=== PATIENT | female | born 1965 | race African-American/Black ===

== ENCOUNTER → 2016-08-26 | Outpatient (CLI) | payer OTHER ==
[2015-05-17 10:00] VITALS: BP 142/74
[~2016-08-26] MED LIST: FERR-26 PO; HYDR12.58 PO; IOHEXOL 300 MG/ML 100ML VIAL. IV ONE; OMEP40CA5 PO; calcium
--- NOTE | 2016-08-26 16:18 | KCIC ---
Indication: Lung nodule Technique: Axial images and coronal and sagittal reformatted images are provided. 95 mL of intravenous Isovue 370 was administered without complication. Comparison is from May 17, 2015. One or more of the following individualized dose reduction techniques were utilized for this examination: 1. Automated exposure control 2. Adjustment of the mA and/or kV according to patient size 3. Use of iterative reconstruction technique Findings: 5 mm left upper lobe nodule on image 49 is stable. Groundglass opacities noted on prior study have improved. No new nodule is identified. There is no pleural effusion. There is no consolidation. There is minimal dependent atelectasis. Central airways are patent. There is no hilar or mediastinal adenopathy. There is minimal atheromatous disease of the thoracic aorta. There is fatty infiltration of the liver. IMPRESSION: 1. Stable pulmonary nodule. Per the most recent Fleischner society recommendations, no further workup is required. 2. Atheromatous disease of the thoracic aorta. 3. Mild fatty infiltration of the liver. Electronically signed by: Doug Black MD (08/26/2016 4:14 PM)
== END | disposition home or self-care (01) ==
LOC: KCIC CT 15:00
PROVIDERS: ATTEND Nurse Practitioner Family
DX: R91.1 Solitary pulmonary nodule (principal); K76.0 Fatty (change of) liver, not elsewhere classified; I70.0 Atherosclerosis of aorta
CPT/HCPCS: 71260; Q9967

== ENCOUNTER → 2016-12-26 | Outpatient (CLI) | payer OTHER ==
[2015-05-17 10:00] VITALS: BP 142/74
[~2016-12-26] MED LIST changes: -IOHEXOL 300 MG/ML 100ML VIAL. IV ONE
--- NOTE | 2016-12-26 13:33 | KCIC ---
Bilateral digital screening mammograms: Reason for examination: Routine screening. Comparison is made to previous studies dated 08/14/2015 and 09/09/2013. Interpretation was made with the benefit of CAD. The skin and nipples show no abnormalities. No abnormal axillary lymph nodes are seen. The breast parenchyma shows scattered fibroglandular density. (Breast density: Category B.) There are no dominant masses, suspicious calcifications or architectural distortions. Impression: No evidence of malignancy. Recommend routine screening. BI-RADS Category 1: Negative. "Our facility is accredited by the [employer] Mammography [employer]." This patient's information has been entered into a reminder system for the patient to be notified with the results of her examination and a target date for the next mammogram. Electronically signed by: Kaitlin Hooper MD (12/26/2016 1:29 PM) [id number]
== END | disposition home or self-care (01) ==
LOC: KCIC MAMMO 10:49
PROVIDERS: ATTEND Nurse Practitioner Family
DX: Z12.31 Encounter for screening mammogram for malignant neoplasm of breast (principal)
CPT/HCPCS: G0202; 77067

== ENCOUNTER → 2018-01-30 | Outpatient (CLI) | payer OTHER ==
[2015-05-17 10:00] VITALS: BP 142/74
[~2018-01-30] MED LIST changes: -FERR-26 PO; +FERR325T14 PO
--- NOTE | 2018-01-30 17:20 | KCIC ---
Bilateral digital screening mammograms: Reason for examination: Routine screening. Comparison is made to previous studies dated 12/26/2016 and 08/14/2015. Interpretation was made with the benefit of CAD. The skin and nipples show no abnormalities. No abnormal axillary lymph nodes are seen. The breast parenchyma shows scattered fibroglandular density. (Breast density: Category B.) There are no dominant masses, suspicious calcifications or architectural distortions. Impression: No evidence of malignancy. Recommend routine screening. BI-RADS Category 1: Negative. "Our facility is accredited by the [employer] Mammography [employer]." This patient's information has been entered into a reminder system for the patient to be notified with the results of her examination and a target date for the next mammogram. Electronically signed by: Kaitlin Hooper MD (01/30/2018 5:16 PM) [id number]
== END | disposition home or self-care (01) ==
LOC: KCIC MAMMO 08:27
PROVIDERS: ATTEND Nurse Practitioner Family
DX: Z12.31 Encounter for screening mammogram for malignant neoplasm of breast (principal)
CPT/HCPCS: 77067

== ENCOUNTER → 2018-11-26 | Outpatient (CLI) | payer OTHER ==
[2015-05-17 10:00] VITALS: BP 142/74
--- NOTE | 2018-11-26 11:12 | KCIC ---
Pelvic ultrasound to include transabdominal and transvaginal imaging 11/26/2018 CLINICAL HISTORY: Abnormal vaginal bleeding. TECHNIQUE: Using the distended urinary bladder as a sonographic window, a real-time ultrasound examination of the pelvis was performed. Additionally in an attempt to better evaluate the uterus and adnexa, a transvaginal ultrasound was performed. Multiple images were obtained. FINDINGS: The uterus is within normal limits in size. It measures 9.0 x 5.8 x 5.0 cm in longitudinal, transverse, and AP dimensions. The endometrial echo complex measures 2.7 mm in thickness which is within normal limits. Within the right posterior aspect of the mid uterine body a rounded hypoechoic mass is seen which measures 1.7 cm in size. This is consistent with a uterine fibroid. No additional abnormality of the uterus is seen. The right ovary is not visualized. The left ovary is normal in size. It measures 2.9 x 2.5 x 1.3 cm in size. A 2 cm oval-shaped anechoic structure is seen within the left ovary consistent with a dominant follicle. No free fluid is seen. IMPRESSION: 1.7 cm uterine fibroid. Electronically signed by: Michael Montes De Oca MD (11/26/2018 11:09 AM) [id number]
== END | disposition home or self-care (01) ==
LOC: KCIC US 09:45
PROVIDERS: ATTEND Nurse Practitioner Family
DX: D25.9 Leiomyoma of uterus, unspecified (principal); N85.8 Other specified noninflammatory disorders of uterus
CPT/HCPCS: 76830; 76856

== ENCOUNTER → 2021-05-03 | Outpatient (CLI) | payer OTHER ==
[2015-05-17 10:00] VITALS: BP 142/74
[~2021-05-03] MED LIST changes: -OMEP40CA5 PO; +OMEP40CA7 PO
--- NOTE | 2021-05-03 11:41 | KCIC ---
Bilateral digital screening mammograms: Reason for examination: Routine screening. Comparison is made to previous studies dated back to 09/09/2013. Interpretation was made with the benefit of CAD. The skin and nipples show no abnormalities. No abnormal axillary lymph nodes are seen. The breast par enchyma shows scattered fatty and fibroglandular density. (Breast density: Category B.) There are no dominant masses, suspicious calcifications or architectural distortion. Impression: No evidence of malignancy. Recommend routine screening. BI-RAD Category 1: Negative. "Our facility is accredited by the [employer] Mammography [employer]." This patient's information has been entered into a reminder system for the patient to be notified wit h the results of her examination and a target date for the next mammogram. Electronically signed by: Kaitlin Hooper MD (05/03/2021 11:39 AM) [id number]
== END ==
LOC: KCIC MAMMO 10:32
PROVIDERS: ATTEND Nurse Practitioner Family
DX: Z12.31 Encounter for screening mammogram for malignant neoplasm of breast (principal)
CPT/HCPCS: 77067